=== PATIENT | female | born 1960 | race Caucasian/White ===

== ENCOUNTER 2020-09-05 07:34 | Day surgery (SDC) | payer OTHER ==
[~2020-09-05] VITALS: Ht 160 cm; Wt 69.3 kg
[~2020-09-05 07:34] MED LIST: CALCIUM CARBON650 MG PO; CLIMARA; CYCL10 PO; DYAZIDE 37.5-21 EACH PO; ESTR2 PO; ESTRADIOL1 MG; Estrace Vagin42.5 GM; MECL25 PO; MULTIPLE VITAM1 EACH PO; OMEGA-3 PO; RXCYCL10 PO; SULI200 PO; TRIHYD253B PO; ZOLP5 PO
--- NOTE | 2020-09-05 08:05 | NUR ---
09/05/20 0805 Bernadette Amos 1 TRY RIGHT HAND WOULDNT ADVANCE 2 TRY RIGHT AC WOULDNT ADVANCE
== END 2020-09-05 09:43 | disposition home or self-care (01) ==
LOC: ORSCSDS 07:34
PROVIDERS: Internal Medicine Gastroenterology
PROC: 0DBK8ZX Excision of Ascending Colon, Via Natural or Artificial Opening Endoscopic, Diagnostic (ICD-10-PCS; principal; 2020-09-05 09:00)
DX: Z12.11 Encounter for screening for malignant neoplasm of colon (principal); Z83.71 Family history of colonic polyps; D12.2 Benign neoplasm of ascending colon; K64.8 Other hemorrhoids; Z79.899 Other long term (current) drug therapy
CPT/HCPCS: 88305; J2704; J7120

== ENCOUNTER → 2023-04-11 | Outpatient (CLI) | payer OTHER | LOC: LAB 13:31 → LAB SHORT 13:31 | DX: N39.0 Urinary tract infection, site not specified (principal) | CPT/HCPCS: 87077; 87086; 87186 ==

== ENCOUNTER → 2024-03-23 | Outpatient (CLI) | payer OTHER ==
[2024-04-02 11:57] LABS: HPV HIGH RISK BY TMA Not Detected; HPV SOURCE Cervical/Vag
== END ==
LOC: LAB SHORT 13:07 → LAB 13:07
PROVIDERS: Family Medicine
DX: Z01.419 Encounter for gynecological examination (general) (routine) without abnormal findings (principal)
CPT/HCPCS: 87624; G0123